=== PATIENT | female | born 1990 | race Caucasian/White ===

== ENCOUNTER 2017-07-18 12:10 | Emergency (ER) | payer SELFPAY | END 2017-07-18 12:41 | PROVIDERS: Emergency Provider Emergency Medicine; Visit Provider Emergency Medicine | DX: R00.0 Tachycardia, unspecified (principal) | CPT/HCPCS: 93005; 93041; 99284 ==

== ENCOUNTER 2022-04-02 04:39 | Emergency (ER) | payer OTHER, SELFPAY ==
[2022-04-02] VITALS (7 sets, daily range): BP systolic 104–136; BP diastolic 61–82; PULSE 120–145; RESP 18–20; TEMP 36.7–37.4; O2SAT 97–100; BMI 18.4
--- NOTE | 2022-04-02 04:50 | HMH.EDGENADL ---
Discharge Plan Disposition Patient Disposition: Home, Self-Care Condition: Good Prescriptions Prescriptions: New ibuprofen 600 mg tablet 600 mg PO Q8H PRN (Reason: pain) Qty: 20 0RF hydroxyzine pamoate [Vistaril] 25 mg capsule 25 mg PO BID PRN (Reason: shaking) Qty: 10 0RF Referrals Follow up/Referrals: Provider,Referral, [Primary Care Provider] - See instructions Activity Restrictions/Add. Instructions Additional Instructions/Restrictions: You have been evaluated for tension headache and palpitations. Please take ibuprofen or Tylenol for headache. Take Vistaril for shaking or palpitations. Follow-up with your primary care doctor in 1 to 2 days for symptom recheck. Return to the emergency department at once for any new or worsening symptoms, chest pain, shortness of breath, difficulty breathing, other concerns Clinical Impressions Clinical Impression: Tension headache, Palpitations Instructions Patient Instructions: DI for Headache, DI for Palpitations Discharge ED Provider: Nahomy Mccloud Adult HPI General Chief complaint: Headache Stated complaint: Shaking, pains in head and back Time Seen by Provider: 04/02/22 04:51 Mode of Arrival: Ambulatory Source of Information: Patient Limitations: No Limitations History of Present Illness HPI narrative: 31-year-old female presenting to the emergency department with headache. Pain started this evening, before bedtime. Is described as a sharp, shooting pain that starts in the back of the head and radiates toward the front. Has been intermittent since onset. Will decrease in severity for a while and then recur. She was unable to sleep tonight. Feels like a shooting, electric pain. No recent illness, fevers, chills, nausea, vomiting. No vision changes. Headache was not sudden or maximal. Not worst headache of life. She has had headaches like this before, but not in quite some time. Denies diagnosis of migraines. Has tried Tylenol. No other medications prior to arrival. No neck pain. No numbness, weakness, tingling in her arms or legs. Related Data Previous Rx's Medication Instructions Recorded hydroxyzine pamoate 25 mg capsule 25 mg PO BID PRN shaking #10 caps 04/02/22 (Vistaril) ibuprofen 600 mg tablet 600 mg PO Q8H PRN pain #20 tabs 04/02/22 Allergies Allergy/AdvReac Type Severity Reaction Status Date / Time No Known Allergies Allergy Unverified 07/18/17 12:20 NO KNOWN DRUG ALLERGIES Allergy Unknown Uncoded 07/07/17 14:52 [facility] Social History Smoking Status: Current every day smoker ROS Obtained: Yes All systems reviewed & no additional complaints except as documented Constitutional Constitutional: Denies chills, Denies fever(s), Reports headache(s) and Denies weakness Eyes Eyes: Denies blurry vision, Denies diplopia, Denies irritation, Denies loss of vision, Denies sensitivity to light, Denies eye pain and Denies photophobia ENT Ears, Nose, Mouth, and Throat: Denies dizziness, Denies otalgia, Denies facial pain, Reports headache(s) and Denies neck pain Cardiovascular Cardiovascular: Denies chest pain and Denies dyspnea Respiratory Respiratory: Denies cough and Denies dyspnea Gastrointestinal Gastrointestingal: Denies nausea or vomiting Musculoskeletal Musculoskeletal: Denies back pain, Denies neck pain, Denies numbness and Denies tingling Integumentary/Breasts Skin/Breast: Denies lesions and Denies rash Neurologic Neurologic: Denies dizziness, Reports headache(s), Denies loss of vision, Denies numbness, Denies tingling and Denies weakness Physical Exam General General appearance: alert and in no apparent distress Head Head exam: atraumatic and normocephalic Eye Eye exam: Present normal appearance and conjunctival redness (tearful) ENT ENT exam: Present normal exam and mucous membranes moist Neck Neck exam: Present normal inspection and full ROM; Absent meningismus Chest Chest inspection: Present kiana
--- NOTE | 2022-04-02 04:51 | CT_ITS ---
PROCEDURE INFORMATION: Exam: CT Head Without Contrast Exam date and time: 04/02/2022 5:35 AM Age: 31 years old Clinical indication: Pain; Headache; Additional info: Headache, ich suspected TECHNIQUE: Imaging protocol: Computed tomography of the head without contrast. Radiation optimization: All CT scans at this facility use at least one of these dose optimization techniques: automated exposure control; mA and/or kV adjustment per patient size (includes targeted exams where dose is matched to clinical indication); or iterative reconstruction. COMPARISON: No relevant prior studies available. FINDINGS: Brain: Normal. No hemorrhage. Unremarkable white matter. No mass effect. Cerebral ventricles: No ventriculomegaly. Paranasal sinuses: Visualized sinuses are unremarkable. No fluid levels. Mastoid air cells: Visualized mastoid air cells are well aerated. Bones/joints: Unremarkable. No acute fracture. Soft tissues: Unremarkable. IMPRESSION: No acute intracranial abnormality.
--- NOTE | 2022-04-02 04:57 | ECG_ITS ---
APPROVED REPORT Exam: Resting ECG HR:140 bpm ECG Measurements Heart Rate 140 AXES OR 130 P 79 QRSd 75 QRS 92 QT 280 T 71 QTc 361 Conclusion SINUS TACHYCARDIA, POSSIBLE ATRIAL FLUTTER BORDERLINE RIGHT AXIS DEVIATION [QRS AXIS > 90] ABNORMAL RHYTHM ECG UNCONFIRMED REPORT Electronically signed by : Landon Erwin MD 04/02/2022 17:37:16
[2022-04-02 05:19] LABS: Microscopic, Urine URINE MICROSCOPIC (MICROSCOPIC)
[2022-04-02 05:27] LABS: Chloride 104 mmol/L (98-107)
[2022-04-02 05:28] LABS: Appearance,Urine CLEAR (Clear); Bilirubin,Urine Negative (Negative); Blood, Urine Negative (Negative); Color,Urine YELLOW (Yellow); Glucose,Urine (UA) Negative (Negative); Ketones,Urine Negative (Negative); Leukocyte Esterase,Urine 1+ (Negative); Nitrate,Urine POSITIVE (Negative); Potassium 3.9 mmoL/L (3.5-5.1); Protein,Urine Negative (Negative); Sodium 137 mmol/L (136-145); Urobilinogen,Urine 0.2 EU/dl (0.2)
[2022-04-02 05:29] LABS: Basophils % 0.7 % (0.1-2.0); Eosinophils # 0.1 K/mm3 (0.0-0.4); Eosinophils % 1.2 % (0.1-12.0); Hematocrit 39.3 % (37.0-47.0); Lymphocytes # 0.3 K/mm3 (0.7-4.5); Lymphocytes % 5.1 % (10-50); Mean Corpuscular HGB Conc 33.2 g/dL (31.8-35.4); Mean Corpuscular Hemoglobin 30.9 pg (27.0-31.2); Mean Corpuscular Volume 93.2 fl (81-99); Mean Platelet Volume 8.9 fl (7.4-10.4); Monocytes # 0.3 K/mm3 (0.1-1.0); Monocytes % 5.2 % (1.7-9.3); Neutrophils # 4.8 K/mm3 (1.8-7.8); Neutrophils % 87.8 % (37.0-80.0); Platelet Count 213 K/mm3 (142-424); Red Blood Count 4.22 M/mm3 (4.20-5.40); Red Cell Distribution Width 12.7 % (11.5-17.5); White Blood Count 5.5 K/mm3 (4.8-10.8)
[2022-04-02 05:30] LABS: Alanine Aminotransferase 13 U/L (12-78); Alkaline Phosphatase 81 U/L (38-126); Aspartate Amino Transferase 24 U/L (14-36); Bilirubin,Total 0.2 mg/dl (0.2-1.3); Blood Urea Nitrogen 8 mg/dl (7-17); Creatinine Clearance Estimated 123 mL/min (50-200); Estimated Glomerular Filt Rate 117 ml/min (>60); GFR (African American) 142 ML/MIN (>60); Urine Pregnancy, HCG Qual. Negative (Negative)
[2022-04-02 05:31] LABS: Albumin Level 4.4 g/dl (3.5-5.0); Albumin/Globulin Ratio 1.4 (1.1-1.8); Anion Gap 9.9 mEq/L (5-15); Calcium 8.3 mg/dl (8.4-10.2); Carbon Dioxide 27 mmol/L (22.0-30.0); Globulin 3.2 g/dL (1.3-3.2); Glucose 95 mg/dl (74-100); Total Protein,Serum 7.6 g/dl (6.3-8.2)
[2022-04-02 05:36] LABS: C-Reactive Protein 3.3 mg/L (0-4)
[2022-04-02 05:38] LABS: Barbiturates Screen,Urine Negative ng/ml (<200)
[2022-04-02 05:39] LABS: Benzodiazepines Screen,Urine Negative ng/ml (<200); MANUAL DIFFERENTIAL MANUAL DIFFERENTIAL (MANUAL DIFF)
[2022-04-02 05:40] LABS: Cannabinoid Screen,Urine Negative ng/ml (<50)
[2022-04-02 05:41] LABS: Cocaine Screen,Urine Negative ng/ml (<300); Methadone Screen,Urine Negative ng/ml (<300)
[2022-04-02 05:42] LABS: Opiate Screen,Urine Negative ng/ml (<300)
[2022-04-02 05:43] LABS: Phencyclidine Screen,Urine Negative ng/ml (<25)
[2022-04-02 05:52] LABS: Bacteria,Urine 3+ /lpf; Mucus,Urine 1+ /lpf
[2022-04-02 07:18] LABS: Lymphocytes % 6 % (10-50); Monocytes % 3 % (2-9); Neutrophils % 90 % (42-76); Platelet Estimate Normal; RBC Morphology Normal; Total Cells Counted 100
--- NOTE | 2022-04-02 07:26 | PC.NURSE ---
rounded on pt, resting with eyes closed. no needs at this time
[2022-04-09 09:13] LABS: Amphetamine Positive (.); Amphetamine (GC/MS) >3000 ng/mL (Cutoff=500); Amphetamines Positive (.); Methamphetamine Positive (.); Methamphetamine (GC/MS) >3000 ng/mL (Cutoff=500)
== END 2022-04-02 08:00 | disposition home or self-care (01) ==
PROVIDERS: Emergency Provider Emergency Medicine
DX: G44.209 Tension-type headache, unspecified, not intractable (principal); R00.2 Palpitations; N39.0 Urinary tract infection, site not specified
CPT/HCPCS: 70450; 80053; 80305; 80324; 81001; 81025; 85007; 85025; 86140; 87086; 87088; 87186; 93005; 96365; 96375; 99285